=== PATIENT | male | born 1985 | race African-American/Black ===

== ENCOUNTER → 2018-08-07 | Outpatient (CLI) | payer OTHER ==
[~2018-08-07] MED LIST: CONRAY-43 43% 50ML VIAL (Q9960) As Ordered; LIDOCAINE 1% MDV 20ML VIAL As Ordered; TRIAMCINOLONE ACETONIDE SUSP 40 MG/ML VIAL (J3301) As Ordered
== END ==
LOC: M RADPRO 09:15
DX: M25.851 Other specified joint disorders, right hip (principal); M25.551 Pain in right hip
CPT/HCPCS: 20610

== ENCOUNTER → 2020-07-11 | Outpatient (CLI) | payer OTHER ==
--- NOTE | 2020-07-19 10:22 | REP ---
LUMBOSACRAL SPINE SERIES 7-VIEWS WITH FLEXION AND EXTENSION BENDING VIEWS REASON FOR EXAM: Chronic back pain. COMPARISON: None. FINDINGS: Vertebral body height and alignment is within normal limits. The disc spaces are symmetric and well-maintained. There is no spondylolysis or spondylolisthesis. Flexion and extension bending views show no instability. The pedicles are intact bilaterally. IMPRESSION: The examination is within normal limits. MTDD
== END ==
LOC: M WUC 13:19
PROVIDERS: ATTEND Physician Assistant
DX: M54.5 Low back pain (principal)

== ENCOUNTER → 2021-06-06 | Outpatient (REF) ==
--- NOTE | 2021-06-08 04:27 | REP ---
INDICATION: PAIN COMPARISON: None. TECHNIQUE: AP and lateral left elbow FINDINGS: Arthritic changes include marginal osteophytes, periarticular sclerosis and joint space narrowing primarily involving the proximal ulna and trochlea/medial aspect of the humerus. No evidence for acute fracture. No obvious effusion or significant soft tissue swelling. IMPRESSION: Moderate arthritic changes possibly related to old injury. <Electronically signed by Ze Cardoso > 06/08/21 0423
== END ==
LOC: M PLAIMG 11:24
PROVIDERS: ATTEND Internal Medicine
DX: Z00.00 Encounter for general adult medical examination without abnormal findings (principal)

== ENCOUNTER 2021-09-27 08:54 | Emergency (ER) | payer OTHER ==
[~2021-09-27] VITALS: Ht 172.7 cm; Wt 100.0 kg
[2021-09-27] MEDS ORDERED: PRED20TA PO (11:47)
[2021-09-27] MEDS ORDERED: CETI10CH PO (11:47)
[2021-09-27 11:55] VITALS: BP 124/88
== END 2021-09-27 11:59 | disposition home or self-care (01) ==
LOC: M ED 08:54
DX: L23.9 Allergic contact dermatitis, unspecified cause (principal)